=== PATIENT | female | born 1970 | race African-American/Black ===

== ENCOUNTER 2016-12-23 04:23 | Emergency (ER) | payer OTHER ==
[~2016-12-23] VITALS: Ht 167.6 cm; Wt 83.5 kg
[~2016-12-23 04:23] MED LIST: CHROMAGEN,1 CAPSULE PO; CIPRO500 MG PO; DELTASONE1 MG PO; DOXYCYCLINE HY100 MG PO; ENDOCET 5-3251 EACH PO; IBUPROFEN800 MG PO; PERCOCET 5/31 TABLET PO; PHENERGAN-CODE120 ML PO; PREDNISONE10 M1 PO; TAMIFLU75 MG PO; TYLENOL WITH C1 EACH PO; VENTOLIN HFA18 GM IH; ZANTAC75 M1 PO; ZITHROMAX Z-PA250 MG PO; ZOFRAN4 MG PO
[2016-12-23 05:23] LABS: CHLORIDE 104 mEq/L (99-109); POTASSIUM 3.7 mEq/L (3.7-5.4); SODIUM 137 mEq/L (136-147)
[2016-12-23 05:25] LABS: GLUCOSE 88 mg/dL (70-99)
[2016-12-23 05:26] LABS: ANION GAP 12 MEQ/L (2-14)
[2016-12-23 05:29] LABS: GFR ESTIMATE (CALCULATED) > 59 mL/min/
[2016-12-23 05:30] LABS: UREA NITROGEN (BUN) 9 mg/dL (9-23)
[2016-12-23 05:31] LABS: HEMATOCRIT 36.3 % (36.0-46.0); MCH 26.6 PG (29.0-34.0); MCHC 33.1 G/DL (30.0-36.0); MCV 80.5 FL (83-99); MEAN PLAT.VOLUME 9.6 uM^3 (9.5-12.4); PLATELET COUNT 319 K/uL (156-360); RBC DIS.WIDTH-CV 13.5 % (11.8-14.6); RBC DIS.WIDTH-SD 39.5 % (39-53); RED BLOOD COUNT 4.51 M/uL (3.80-5.20); WHITE BLOOD COUNT 8.5 K/uL (4.1-10.2)
[2016-12-23 05:36] LABS: TROP-I INTERPRETATION NEGATIVE; TROPONIN-I < 0.01 ng/mL (0.0-0.30)
[2016-12-23 06:27] VITALS: BP 147/89
== END 2016-12-23 06:29 | disposition home or self-care (01) ==
LOC: EME 04:23
PROVIDERS: Emergency Medicine
DX: J06.9 Acute upper respiratory infection, unspecified (principal); F17.200 Nicotine dependence, unspecified, uncomplicated; Z90.49 Acquired absence of other specified parts of digestive tract
CPT/HCPCS: 71020; 80048; 84484; 85027; 93005; 99281; 99283

== ENCOUNTER 2017-03-03 13:22 | Emergency (ER) | payer OTHER ==
[~2017-03-03] VITALS: Ht 167.6 cm; Wt 84.9 kg
[2017-03-03 15:00] LABS: HEMATOCRIT 35.3 % (36.0-46.0); MCH 26.7 PG (29.0-34.0); MCHC 32.9 G/DL (30.0-36.0); MCV 81.1 FL (83-99); MEAN PLAT.VOLUME 9.4 uM^3 (9.5-12.4); PLATELET COUNT 274 K/uL (156-360); RBC DIS.WIDTH-CV 14.2 % (11.8-14.6); RBC DIS.WIDTH-SD 41.8 % (39-53); RED BLOOD COUNT 4.35 M/uL (3.80-5.20); WHITE BLOOD COUNT 6.3 K/uL (4.1-10.2)
[2017-03-03 15:08] LABS: CHLORIDE 105 mEq/L (99-109); POTASSIUM 3.9 mEq/L (3.7-5.4); SODIUM 140 mEq/L (136-147)
[2017-03-03 15:10] LABS: GLUCOSE 91 mg/dL (70-99)
[2017-03-03 15:12] LABS: ANION GAP 11 MEQ/L (2-14)
[2017-03-03 15:14] LABS: GFR ESTIMATE (CALCULATED) > 59 mL/min/
[2017-03-03 15:15] LABS: UREA NITROGEN (BUN) 16 mg/dL (9-23)
[2017-03-03] MEDS ORDERED: NORCO 5/3251 TABLET PO (16:05)
[2017-03-03] MEDS ORDERED: MOTRIN600 MG PO (16:05)
[2017-03-03 16:22] VITALS: BP 128/65
== END 2017-03-03 16:26 | disposition home or self-care (01) ==
LOC: EME 13:22
DX: B34.9 Viral infection, unspecified (principal); J40 Bronchitis, not specified as acute or chronic; F17.200 Nicotine dependence, unspecified, uncomplicated; D86.9 Sarcoidosis, unspecified; Z90.49 Acquired absence of other specified parts of digestive tract; Z90.710 Acquired absence of both cervix and uterus
CPT/HCPCS: 71020; 80048; 85027; 99281; 99284; J1885; J2270; J7040

== ENCOUNTER 2017-03-10 02:00 | Inpatient (IN) | payer OTHER ==
[~2017-03-10] VITALS: Ht 167.6 cm; Wt 86.0 kg
[~2017-03-10 02:00] MED LIST changes: +MOTRIN600 MG PO; +NORCO 5/3251 TABLET PO
[2017-03-10 02:37] LABS: EOSINOPHIL (%) 0.1 % (0-5); HEMATOCRIT 35.3 % (36.0-46.0); IMMATURE GRANULOCYTE (%) 0.5 % (0.0-0.7); IMMATURE GRANULOCYTE COUNT 0.1 K/uL; INSTRUMENT ABS NEUTROPHIL CT 10.7 K/uL; LYMPHOCYTE COUNT 3.2 K/uL (1.0-2.8); MCH 26.5 PG (29.0-34.0); MCHC 32.9 G/DL (30.0-36.0); MCV 80.8 FL (83-99); MEAN PLAT.VOLUME 9.7 uM^3 (9.5-12.4); MONOCYTE (%) 7.2 % (3-12); MONOCYTE COUNT 1.1 K/uL (0-0.8); NEUTROPHIL (%) 70.7 % (45-76); NEUTROPHIL COUNT 10.7 K/uL (1.8-6.4); PLATELET COUNT 299 K/uL (156-360); RBC DIS.WIDTH-CV 14.3 % (11.8-14.6); RBC DIS.WIDTH-SD 41.7 % (39-53); RED BLOOD COUNT 4.37 M/uL (3.80-5.20); WHITE BLOOD COUNT 15.1 K/uL (4.1-10.2)
[2017-03-10 02:58] LABS: TROP-I INTERPRETATION NEGATIVE; TROPONIN-I < 0.01 ng/mL (0.0-0.30)
[2017-03-10 03:06] LABS: CHLORIDE 108 mEq/L (99-109); POTASSIUM 3.8 mEq/L (3.7-5.4); SODIUM 143 mEq/L (136-147)
[2017-03-10 03:08] LABS: GLUCOSE 105 mg/dL (70-99)
[2017-03-10 03:09] LABS: ANION GAP 11 MEQ/L (2-14)
[2017-03-10 03:10] LABS: TOTAL BILIRUBIN 0.3 mg/dL (0.0-1.0)
[2017-03-10 03:11] LABS: ALKALINE PHOSPHATASE 126 IU/L (3-129)
[2017-03-10 03:12] LABS: GFR ESTIMATE (CALCULATED) > 59 mL/min/
[2017-03-10 03:13] LABS: UREA NITROGEN (BUN) 17 mg/dL (9-23)
[2017-03-10 03:50] LABS: QUANTITATIVE HCG < 4.0 MIU/ML
[2017-03-10 07:56] VITALS: BP 104/62
[2017-03-10 12:36] VITALS: BP 115/68
[2017-03-10 16:00] VITALS: BP 104/58
[2017-03-10 19:40] VITALS: BP 111/65
[2017-03-10 22:00] LABS: INFLUENZA A VIRAL ANTIGEN NEGATIVE; INFLUENZA B VIRAL ANTIGEN NEGATIVE
[2017-03-10 23:37] VITALS: BP 111/58
[2017-03-11] VITALS (7 sets, daily range): BP systolic 110–132; BP diastolic 56–82
[2017-03-11 05:25] LABS: WHITE BLOOD COUNT 9.7 K/uL (4.1-10.2)
[2017-03-11 05:26] LABS: HEMATOCRIT 32.2 % (36.0-46.0); MCH 27.5 PG (29.0-34.0); MCHC 33.5 G/DL (30.0-36.0); MCV 81.9 FL (83-99); PLATELET COUNT 255 K/uL (156-360); RBC DIS.WIDTH-CV 14.5 % (11.8-14.6); RBC DIS.WIDTH-SD 42.7 % (39-53); RED BLOOD COUNT 3.93 M/uL (3.80-5.20)
[2017-03-12 03:25] VITALS: BP 133/71
[2017-03-12 05:54] LABS: EOSINOPHIL (%) 0 % (0-5); HEMATOCRIT 34.2 % (36.0-46.0); IMMATURE GRANULOCYTE (%) 0.7 % (0.0-0.7); IMMATURE GRANULOCYTE COUNT 0.1 K/uL; INSTRUMENT ABS NEUTROPHIL CT 8.1 K/uL; LYMPHOCYTE COUNT 2.2 K/uL (1.0-2.8); MCH 26.5 PG (29.0-34.0); MCHC 32.2 G/DL (30.0-36.0); MCV 82.4 FL (83-99); MEAN PLAT.VOLUME 9.9 uM^3 (9.5-12.4); MONOCYTE (%) 7.2 % (3-12); MONOCYTE COUNT 0.8 K/uL (0-0.8); NEUTROPHIL (%) 72.2 % (45-76); NEUTROPHIL COUNT 8.1 K/uL (1.8-6.4); PLATELET COUNT 273 K/uL (156-360); RBC DIS.WIDTH-CV 14.6 % (11.8-14.6); RBC DIS.WIDTH-SD 43.5 % (39-53); RED BLOOD COUNT 4.15 M/uL (3.80-5.20); WHITE BLOOD COUNT 11.2 K/uL (4.1-10.2)
[2017-03-12 06:26] LABS: ANION GAP 8 MEQ/L (2-14); CHLORIDE 104 MEQ/L (99-109); GFR ESTIMATE (CALCULATED) > 59 mL/min/; GLUCOSE 105 mg/dL (70-99); MAGNESIUM 2.3 mg/dl (1.3-2.7); POTASSIUM 4.4 MEQ/L (3.7-5.4); SAMPLE HEMOLYSIS CHECK 0; SAMPLE ICTERIC CHECK 0; SAMPLE LIPEMIA CHECK 0; SODIUM 139 MEQ/L (136-147); UREA NITROGEN (BUN) 16 mg/dL (9-23)
[2017-03-12 07:57] VITALS: BP 121/77
[2017-03-12 12:05] VITALS: BP 122/74
[2017-03-12 15:58] VITALS: BP 132/87
[2017-03-12 19:58] VITALS: BP 130/69
[2017-03-12 23:50] VITALS: BP 128/87
[2017-03-13 03:28] VITALS: BP 131/85
[2017-03-13 09:01] VITALS: BP 124/88
[2017-03-13] MEDS ORDERED: BENZONATATE100 MG PO (11:53)
[2017-03-13] MEDS ORDERED: MONTELUKAST SOD10 MG PO (11:54)
[2017-03-13] MEDS ORDERED: CEFDINIR300 MG PO (11:55)
[2017-03-13 11:59] VITALS: BP 124/84
[2017-03-13] MEDS ORDERED: LORAZEPAM0.5 MG PO (12:00)
[2017-03-13] MEDS ORDERED: ENDOCET 5-3251 EACH PO (12:00)
[2017-03-13] MEDS ORDERED: PREDNISONE10 MG PO (12:00)
== END 2017-03-13 13:43 | disposition home or self-care (01) | DRG 192 ==
LOC: EME → EDBD 02:00 → EME 02:00 → EDOF 05:45 → 5WEST 05:45 → ENRESERV 05:47 → 5WEST 07:49 → ENRESERV 03-11 08:48 → 5SOUTH 03-11 20:07
PROVIDERS: Emergency Medicine; Internal Medicine; Physician Assistant Medical
DX: J44.1 Chronic obstructive pulmonary disease with (acute) exacerbation (principal); J84.10 Pulmonary fibrosis, unspecified; D86.0 Sarcoidosis of lung; F17.200 Nicotine dependence, unspecified, uncomplicated; Q76.0 Spina bifida occulta; K21.9 Gastro-esophageal reflux disease without esophagitis; Z87.01 Personal history of pneumonia (recurrent); Z68.30 Body mass index [BMI] 30.0-30.9, adult
CPT/HCPCS: 71275; 80048; 80053; 83605; 83735; 83880; 84484; 84702; 85025; 85027; 87502; 93005; 94640; 94640 76; 94799; 99202; 99281; 99285; G0378; J0696; J1650; J2060; J2270; J2930; J7030; J7050; J7512

== ENCOUNTER 2017-03-15 00:14 | Inpatient (IN) | payer SELFPAY ==
[~2017-03-15] VITALS: Ht 167.6 cm; Wt 83.6 kg
[~2017-03-15 00:14] MED LIST changes: +BENZONATATE100 MG PO; +CEFDINIR300 MG PO; +LORAZEPAM0.5 MG PO; +MONTELUKAST SOD10 MG PO; +PREDNISONE10 MG PO
[2017-03-15 00:51] LABS: HEMATOCRIT 38.9 % (36.0-46.0); MCH 26.7 PG (29.0-34.0); MCHC 32.6 G/DL (30.0-36.0); MCV 81.9 FL (83-99); MEAN PLAT.VOLUME 9.6 uM^3 (9.5-12.4); PLATELET COUNT 308 K/uL (156-360); RBC DIS.WIDTH-CV 14.3 % (11.8-14.6); RBC DIS.WIDTH-SD 41.9 % (39-53); RED BLOOD COUNT 4.75 M/uL (3.80-5.20); WHITE BLOOD COUNT 12.6 K/uL (4.1-10.2)
[2017-03-15 01:01] LABS: CHLORIDE 101 mEq/L (99-109); POTASSIUM 3.6 mEq/L (3.7-5.4); SODIUM 141 mEq/L (136-147)
[2017-03-15 01:03] LABS: GLUCOSE 131 mg/dL (70-99)
[2017-03-15 01:04] LABS: ANION GAP 12 MEQ/L (2-14)
[2017-03-15 01:05] LABS: TOTAL BILIRUBIN 0.3 mg/dL (0.0-1.0)
[2017-03-15 01:07] LABS: GFR ESTIMATE (CALCULATED) > 59 mL/min/
[2017-03-15 01:08] LABS: UREA NITROGEN (BUN) 16 mg/dL (9-23)
[2017-03-15 01:10] LABS: LIPASE 13 U/L (1.0-51.0)
[2017-03-15 01:18] LABS: D-DIMER ELISA < 150.00 ng/mLDDU (<230); PROTHROMBIN TIME 11.3 SEC (10.2-12.9); PTT 21.9 SEC (25-37)
[2017-03-15 01:20] LABS: ALKALINE PHOSPHATASE 92 IU/L (3-129)
[2017-03-15 03:17] LABS: ERTH.SED.RATE 25 MM/HR (0-20)
[2017-03-15 03:42] LABS: C-REACTIVE PROTEIN 5.8 MG/L (0-10); SAMPLE HEMOLYSIS CHECK 0; SAMPLE ICTERIC CHECK 0; SAMPLE LIPEMIA CHECK 0
[2017-03-15 03:44] VITALS: BP 123/70
[2017-03-15] MEDS ORDERED: PREDNISONE10 MG PO (11:41)
[2017-03-15 12:00] VITALS: BP 113/73
[2017-03-15 16:23] VITALS: BP 107/72
[2017-03-15 19:30] VITALS: BP 117/72
[2017-03-16 00:29] VITALS: BP 114/64
[2017-03-16 04:27] VITALS: BP 114/89
[2017-03-16] MEDS ORDERED: PREDNISONE10 MG PO (09:34)
[2017-03-16] MEDS ORDERED: PROVENTIL HFA6.7 GM IH (09:34)
== END 2017-03-16 11:17 | disposition home or self-care (01) | DRG 192 ==
LOC: EME 00:14 → EDOF 02:19 → ENRESERV 02:21 → 5WEST 03:24 → ENRESERV 11:12 → CANRESERV 11:12 → 5WEST 03-16 11:17
PROVIDERS: Emergency Medicine
DX: J44.1 Chronic obstructive pulmonary disease with (acute) exacerbation (principal); K21.0 Gastro-esophageal reflux disease with esophagitis; D86.0 Sarcoidosis of lung; F17.200 Nicotine dependence, unspecified, uncomplicated; I27.20 Pulmonary hypertension, unspecified; E86.1 Hypovolemia; I95.9 Hypotension, unspecified; Z87.01 Personal history of pneumonia (recurrent)
CPT/HCPCS: 71010; 80053; 82164 90; 83605; 83690; 85027; 85379; 85610; 85651; 85730; 86140; 93005; 93306; 94640; 94640 76; 99202; 99281; 99285; J1650; J2930; J3010; J7030

== ENCOUNTER 2017-03-23 21:46 | Emergency (ER) | payer SELFPAY ==
[~2017-03-23] VITALS: Ht 167.6 cm; Wt 84.6 kg
[~2017-03-23 21:46] MED LIST changes: +PROVENTIL HFA6.7 GM IH
[2017-03-23 21:59] VITALS: BP 147/96
[2017-03-23 22:44] LABS: HEMATOCRIT 39.6 % (36.0-46.0); MCH 27.3 PG (29.0-34.0); MCHC 33.3 G/DL (30.0-36.0); MCV 81.8 FL (83-99); MEAN PLAT.VOLUME 9.2 uM^3 (9.5-12.4); PLATELET COUNT 322 K/uL (156-360); RBC DIS.WIDTH-CV 14.8 % (11.8-14.6); RBC DIS.WIDTH-SD 43.9 % (39-53); RED BLOOD COUNT 4.84 M/uL (3.80-5.20)
[2017-03-23 22:52] LABS: D-DIMER ELISA < 150.00 ng/mLDDU (<230)
[2017-03-23 22:57] LABS: CHLORIDE 106 mEq/L (99-109); POTASSIUM 3.4 mEq/L (3.7-5.4); SODIUM 142 mEq/L (136-147)
[2017-03-23 23:00] LABS: GLUCOSE 103 mg/dL (70-99)
[2017-03-23 23:01] LABS: ANION GAP 11 MEQ/L (2-14)
[2017-03-23 23:02] LABS: TOTAL BILIRUBIN 0.2 mg/dL (0.0-1.0)
[2017-03-23 23:03] LABS: ALKALINE PHOSPHATASE 95 IU/L (3-129); GFR ESTIMATE (CALCULATED) > 59 mL/min/
[2017-03-23 23:04] LABS: UREA NITROGEN (BUN) 14 mg/dL (9-23)
[2017-03-23 23:07] LABS: LIPASE 29 U/L (1.0-51.0); TROP-I INTERPRETATION NEGATIVE; TROPONIN-I < 0.01 ng/mL (0.0-0.30)
== END 2017-03-23 23:40 | disposition left against medical advice (07) ==
LOC: EME 21:46
PROVIDERS: Emergency Medicine
DX: R07.9 Chest pain, unspecified (principal); D72.829 Elevated white blood cell count, unspecified; J44.9 Chronic obstructive pulmonary disease, unspecified; D86.9 Sarcoidosis, unspecified; Z87.891 Personal history of nicotine dependence; Z90.49 Acquired absence of other specified parts of digestive tract; Z53.21 Procedure and treatment not carried out due to patient leaving prior to being seen by health care provider
CPT/HCPCS: 80053; 82803; 83605; 83690; 84484; 85027; 85379; 87040; 93005; 99281; 99283